=== PATIENT | female | born 1935 | race African-American/Black ===

== ENCOUNTER 2023-11-04 17:53 | Inpatient (IN) | payer OTHER, MEDICARE ==
[~2023-11-04] VITALS: Ht 165.1 cm; Wt 39.0 kg
[2023-11-04 20:05] LABS: BASOPHILS % 0.8 % (0.0-2.0); EOSINOPHILS % 0.6 % (0.0-5.0); HEMATOCRIT. 36.6 % (36.0-48.0); HEMOGLOBIN. 11.9 g/dL (12.0-16.0); MEAN CORPUSCULAR HEMOGLOBIN 30.3 pg (28.0-32.0); MEAN CORPUSCULAR HGB CONC 32.5 g/dL (31.0-37.0); MEAN CORPUSCULAR VOLUME 93.2 fL (81.0-99.0); NEUTROPHILS % 83.6 % (40.0-76.0); PLATELET 181 x1000/uL (130-400); RED BLOOD CELL COUNT 3.93 mill/uL (4.2-5.4); RED CELL DISTRIBUTION WIDTH 19.3 % (11.6-14.6); WHITE BLOOD COUNT 13.1 x1000/uL (4.5-11.0)
[2023-11-04 20:09] LABS: CHLORIDE 102 mEq/L (98-107); POTASSIUM 3.8 mEq/L (3.5-5.1); SODIUM 135 mEq/L (136-145)
[2023-11-04 20:10] LABS: CARBON DIOXIDE 26 mEq/L (21-32)
[2023-11-04 20:11] LABS: CALCIUM 8.2 mg/dL (8.7-10.4)
[2023-11-04 20:15] LABS: CREATININE 3.3 mg/dL (0.6-1.0); GLUCOSE 116 mg/dL (70-105); UREA NITROGEN BLOOD 27 mg/dL (9-23)
[2023-11-04 20:25] LABS: TROPONIN I HIGH SENSITIVITY 1120 ng/L (3.0-34)
[2023-11-04] MEDS: PIPERACILLIN/TAZO 3.375G/50ML 50 ML IV ONE (22:23)
[2023-11-05] MEDS ORDERED: ONDANSETRON HCL 4MG/2ML INJ IV PRN
[2023-11-05] MEDS ORDERED: ACETAMINOPHEN 325MG TABLET PO PRN
[2023-11-05] MEDS ORDERED: IPRATROPIUM/ALBUTEROL 0.5-3(2.5)MG/3ML NEB NEB PRN
[2023-11-05] MEDS ORDERED: HYDRALAZINE 20MG/ML VIAL IV PRN
[2023-11-05] MEDS ORDERED: CLOPIDOGREL 75MG TABLET PO NR
[2023-11-05] MEDS ORDERED: NITROGLYCERIN OINT 1GM/INCH UDPKT TD SCH (06:00)
[2023-11-05 09:56] LABS: TROPONIN I HIGH SENSITIVITY 1017 ng/L (3.0-34)
[2023-11-05] MEDS: HYDRALAZINE HCL 50MG TABLET PO SCH (11:41)
[2023-11-05] MEDS: ASPIRIN 81MG EC TABLET PO SCH (11:41)
[2023-11-05] MEDS: AMLODIPINE 5MG TABLET PO NR (11:41)
[2023-11-05] MEDS: LEVOTHYROXINE SODIUM 112MCG TABLET PO SCH (11:42)
[2023-11-05] MEDS: CLONIDINE 0.1MG TABLET PO PRN (11:42)
[2023-11-05] MEDS: NITROGLYCERIN OINT 1GM/INCH UDPKT TD SCH (12:00)
[2023-11-05 19:00] VITALS: BP 156/65; PULSE 66; RESP 14; O2SAT 20
[2023-11-05 19:30] VITALS: BP 181/58; PULSE 62; RESP 18; TEMP 36.7516
[2023-11-05] MEDS: AMLODIPINE 5MG TABLET PO SCH (20:23)
[2023-11-05] MEDS: ATORVASTATIN CALCIUM 40MG TABLET PO SCH (20:23)
[2023-11-05] MEDS: SODIUM CHLORIDE 0.9% 3ML FLUSH IVF SCH (22:27)
[2023-11-06] VITALS (11 sets, daily range): BP systolic 141–166; BP diastolic 51–88; PULSE 56–77; RESP 11–21; TEMP 36.44736–36.9474; O2SAT 92–99
[2023-11-06 06:43] LABS: CALCIUM 8.3 mg/dL (8.7-10.4)
[2023-11-06 06:51] LABS: PHOSPHORUS 6.7 mg/dL (2.5-4.9)
[2023-11-06 06:54] LABS: CREATININE 4.6 mg/dL (0.6-1.0)
[2023-11-06 07:57] LABS: EOSINOPHILS % 2.3 % (0.0-5.0); HEMATOCRIT. 35.2 % (36.0-48.0); HEMOGLOBIN. 11.3 g/dL (12.0-16.0); LYMPHOCYTES % 11.8 % (20.0-50.0); MEAN CORPUSCULAR HGB CONC 32.2 g/dL (31.0-37.0); MEAN CORPUSCULAR VOLUME 93.4 fL (81.0-99.0); MEAN PLATELET VOLUME 8.7 fl (7.4-10.4); NEUTROPHILS % 78.9 % (40.0-76.0); PLATELET 193 x1000/uL (130-400); RED BLOOD CELL COUNT 3.78 mill/uL (4.2-5.4); RED CELL DISTRIBUTION WIDTH 19.1 % (11.6-14.6); WHITE BLOOD COUNT 10.6 x1000/uL (4.5-11.0)
[2023-11-06] MEDS: FOLIC ACID/VITAMIN B COMP W-C TABLET PO SCH (08:18)
[2023-11-06] MEDS: CALCIUM ACETATE 667MG CAPSULE PO SCH (12:40)
[2023-11-06] MEDS: ACETAMINOPHEN 325MG TABLET PO PRN (12:41)
[2023-11-06] MEDS ORDERED: HYDRALAZINE HCL 25MG TABLET PO SCH (14:00)
[2023-11-06] MEDS: HYDRALAZINE HCL 100MG TABLET PO SCH (14:20)
[2023-11-06] MEDS ORDERED: AMLO10TA80 PO (14:29)
[2023-11-06] MEDS ORDERED: AMLO10TA4 PO (14:30)
[2023-11-06] MEDS ORDERED: ASPI-1406 PO (14:30)
[2023-11-06] MEDS ORDERED: ATOR40TA70 PO (14:31)
[2023-11-06] MEDS ORDERED: CALC667T2 PO (14:33)
[2023-11-06] MEDS ORDERED: FOLI0.8T53 PO (14:34)
[2023-11-06] MEDS ORDERED: HYDR100T11 PO (14:35)
[2023-11-06] MEDS ORDERED: LEVO125T PO (14:36)
[2023-11-06] MEDS ORDERED: NITR1PAT59 TP (14:38)
[2023-11-07] MEDS ORDERED: LEVOTHYROXINE SODIUM 125MCG TABLET PO SCH (06:50)
[2023-11-07] MEDS ORDERED: ENOXAPARIN 30MG/0.3ML SYR SUBCUT SCH (09:00)
== END 2023-11-06 23:16 | DRG 280 ==
LOC: ER 17:53 → EDBEDREQ 22:31 → 5WST 11-05 00:13 → 3WST 11-05 18:52
PROVIDERS: ADMIT Internal Medicine; ATTEND Internal Medicine
DX: I21.4 Non-ST elevation (NSTEMI) myocardial infarction (principal); N18.6 End stage renal disease; I12.0 Hypertensive chronic kidney disease with stage 5 chronic kidney disease or end stage renal disease; E11.22 Type 2 diabetes mellitus with diabetic chronic kidney disease; E03.9 Hypothyroidism, unspecified; D64.9 Anemia, unspecified; E11.51 Type 2 diabetes mellitus with diabetic peripheral angiopathy without gangrene; F03.90 Unspecified dementia, unspecified severity, without behavioral disturbance, psychotic disturbance, mood disturbance, and anxiety; I45.10 Unspecified right bundle-branch block; E78.5 Hyperlipidemia, unspecified; I25.10 Atherosclerotic heart disease of native coronary artery without angina pectoris; I44.0 Atrioventricular block, first degree; Z82.49 Family history of ischemic heart disease and other diseases of the circulatory system; Z86.73 Personal history of transient ischemic attack (TIA), and cerebral infarction without residual deficits; Z89.512 Acquired absence of left leg below knee; Z89.612 Acquired absence of left leg above knee; Z79.02 Long term (current) use of antithrombotics/antiplatelets; Z79.82 Long term (current) use of aspirin
CPT/HCPCS: 36415; 71045; 80048; 83605; 84100; 84443; 84484; 85025; 93005; 93306; 99285; A6261; J0360; J2543